=== PATIENT | female | born 1990 | race American Indian/Alaskan Native ===

== ENCOUNTER 2019-11-04 19:23 | Emergency (ER) | payer OTHER ==
[2019-11-04 20:17] VITALS: BP 135/94
[2019-11-04] MEDS ORDERED: ACETAMINOPHEN 325 MG TAB PO ONE (20:47)
--- NOTE | 2019-11-04 21:25 | XRay Report ---
RIGHT KNEE, 3 VIEWS INDICATION / CLINICAL INFORMATION: right knee pain. Fell off stairs COMPARISON: None available. FINDINGS: No fracture, dislocation, or joint effusion noted. IMPRESSION: Negative exam. Signer Name: Yuliet Doyle MD Signed: 11/04/2019 9:21 PM Workstation Name: [id number]
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
== END 2019-11-04 22:00 | disposition home or self-care (01) ==
LOC: ED 19:23
DX: M25.561 Pain in right knee (principal); W10.8XXA Fall (on) (from) other stairs and steps, initial encounter; Y93.89 Activity, other specified; Y92.89 Other specified places as the place of occurrence of the external cause; Y99.8 Other external cause status

== ENCOUNTER 2021-05-25 00:21 | Emergency (ER) | payer OTHER ==
[2021-05-25 01:40] LABS: Blood Urea Nitrogen 6 mg/dL (7-17); Calcium 8.9 mg/dL (8.4-10.2); Hemolysis Index 0
[2021-05-25 01:46] LABS: BUN/Creatinine Ratio 9
[2021-05-25 01:49] LABS: Monocytes # (Auto) 0.4 K/mm3 (0.0-0.8); Monocytes % (Auto) 11.9 % (0.0-7.3)
[2021-05-25 01:52] LABS: Basophils % (Auto) 0.3 % (0.0-1.8); Hematocrit 36.2 % (30.3-42.9); Hemoglobin 11.7 gm/dl (10.1-14.3); Lymphocytes # (Auto) 0.6 K/mm3 (1.2-5.4); Lymphocytes % (Auto) 16.1 % (13.4-35.0); Mean Corpuscular HGB Conc 32 % (30-34); Mean Corpuscular Volume 75 fl (79-97); Platelet Count 269 K/mm3 (140-440); Red Blood Count 4.82 M/mm3 (3.65-5.03)
[2021-05-25 01:53] LABS: Red Cell Distribution Width 20.3 % (13.2-15.2)
[2021-05-25] MEDS ORDERED: ACETAMINOPHEN 500 MG TAB PO ONE (10:35)
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
[2021-05-25 11:03] VITALS: BP 130/94
== END 2021-05-25 11:02 | disposition home or self-care (01) ==
LOC: EEVIPCON 00:21 → ED 00:21
DX: S39.012A Strain of muscle, fascia and tendon of lower back, initial encounter (principal); B34.9 Viral infection, unspecified; T74.11XA Adult physical abuse, confirmed, initial encounter; Z77.098 Contact with and (suspected) exposure to other hazardous, chiefly nonmedicinal, chemicals; Z98.890 Other specified postprocedural states; F17.200 Nicotine dependence, unspecified, uncomplicated; Z88.6 Allergy status to analgesic agent; Z88.8 Allergy status to other drugs, medicaments and biological substances; X58.XXXA Exposure to other specified factors, initial encounter; Y93.89 Activity, other specified; Y92.89 Other specified places as the place of occurrence of the external cause; Y99.8 Other external cause status
CPT/HCPCS: 36415; 80048; 80320; 85025; 99284; G0480

== ENCOUNTER 2022-02-12 04:36 | Emergency (ER) | payer BC, OTHER ==
[2022-02-12] MEDS ORDERED: KETOROLAC 30 MG/1 ML INJ IV ONE (09:43)
[2022-02-12] MEDS ORDERED: SODIUM CHLORIDE 0.9% 1000 ML 1,000 ML IV ONE (09:43)
[2022-02-12] MEDS ORDERED: ONDANSETRON 4 MG/2 ML INJ IV ONE (09:43)
--- NOTE | 2022-02-12 09:48 | Emergency Department Report ---
ED Abdominal Pain HPI - General Chief Complaint: Abdominal Pain Stated Complaint: ABD PAIN PUI?: No Time Seen by Provider: 02/12/22 09:45 Source: patient, EMS Mode of arrival: Stretcher Limitations: No Limitations - History of Present Illness Initial Comments: Patient 31-year-old female with history of renal stones presents with left flank pain radiating suprapubic rated at 5/10 for the past 2 days. Patient states nausea vomiting dysuria frequency and urgency. Patient denies hematuria. Last renal stone was 1 year ago. Symptoms are exacerbated by voiding. Symptoms are relieved by nothing tried. There is no fever or chills. Last menstrual cycle 1 week ago. MD Complaint: flank pain - Related Data Previous Rx's Medication Instructions Recorded Last Taken Type Ketorolac [Toradol] 10 mg PO Q6H PRN #12 tab 02/12/22 Unknown Rx Ondansetron [Zofran Odt] 4 mg PO Q8HR #12 tab.rapdis 02/12/22 Unknown Rx Allergies Allergy/AdvReac Type Severity Reaction Status Date / Time aspirin Allergy Hives Verified 02/12/22 10:35 lisinopril Allergy Angioedema Verified 02/12/22 10:35 NSAIDS (Non-Steroidal Allergy Unknown Verified 02/12/22 10:35 Anti-Inflamma ED Review of Systems ROS: Stated complaint: ABD PAIN Other details as noted in HPI Constitutional: denies: chills, fever Eyes: denies: eye pain, eye discharge, vision change ENT: denies: ear pain, throat pain Respiratory: denies: cough, shortness of breath, wheezing Cardiovascular: denies: chest pain, palpitations Endocrine: no symptoms reported Gastrointestinal: abdominal pain, nausea, vomiting. denies: diarrhea, constipation, melena Genitourinary: urgency, dysuria, frequency. denies: hematuria, discharge Musculoskeletal: back pain (Left flank) Skin: denies: rash, lesions Neurological: denies: headache, weakness, paresthesias Psychiatric: denies: anxiety, depression Hematological/Lymphatic: denies: easy bleeding, easy bruising ED Past Medical Hx - Past Medical History Previous Medical History?: No - Surgical History Past Surgical History?: Yes Additional Surgical History: Tubaligation, hernia - Social History Smoking Status: Current Every Day Smoker Substance Use Type: Alcohol - Medications Home Medications: Home Medications Medication Instructions Recorded Confirmed Last Taken Type Ketorolac [Toradol] 10 mg PO Q6H PRN #12 tab 02/12/22 Unknown Rx Ondansetron [Zofran Odt] 4 mg PO Q8HR #12 tab.rapdis 02/12/22 Unknown Rx ED Physical Exam - General Limitations: No Limitations General appearance: alert, in no apparent distress - Head Head exam: Present: normocephalic, normal inspection - Eye Eye exam: Present: normal appearance, EOMI Pupils: Present: normal accommodation - ENT ENT exam: Present: normal exam - Neck Neck exam: Present: normal inspection, full ROM. Absent: tenderness - Respiratory Respiratory exam: Present: normal lung sounds bilaterally. Absent: respiratory distress, wheezes, chest wall tenderness - Cardiovascular Cardiovascular Exam: Present: regular rate, normal rhythm, normal heart sounds. Absent: systolic murmur, diastolic murmur, rubs, gallop - GI/Abdominal GI/Abdominal exam: Present: soft, tenderness (Left CVA), normal bowel sounds. Absent: distended, guarding, rebound, rigid, bruit, hernia - Rectal Rectal exam: Present: deferred - Extremities Exam Extremities exam: Present: normal inspection, full ROM, normal capillary refill - Back Exam Back exam: Present: normal inspection, full ROM, CVA tenderness (L). Absent: CVA tenderness (R) - Neurological Exam Neurological exam: Present: alert, oriented X3, CN II-XII intact, normal gait - Expanded Neurological Exam Expanded Patient oriented to: Present: person, place, time Speech: Present: fluid speech Best Eye Response (Derek): (4) open spontaneously Best Motor Response (Derek): (6) obeys commands Best Verbal Response (Derek): (5) oriented Derek Total: 15 - Psychiatric Psychiatric exam: Present: normal affect - Skin Skin exam: Present: warm, dry, intact, normal color. Absent: rash ED Course Vital Signs 02/12/22 02/12/22 02/12/22 04:38 10:37 10:46 Temperature 97.9 F 98.4 F 98.5 F Pulse Rate 101 H 76 78 Respiratory 18 20 20 Rate Blood Pressure 121/78 Blood Pressure 126/94 121/78 [Right] O2 Sat by Pulse 99 99 99 Oximetry ED Medical Decision Making - Lab Data Result diagrams: 02/12/22 10:04 02/12/22 10:04 Labs 02/12/22 02/12/22 02/12/22 10:04 10:04 10:35 WBC 6.8 RBC 4.39 Hgb 10.1 Hct 31.9 MCV 73 L MCH 23 L MCHC 32 RDW 19.7 H Plt Count 514 H Lymph % (Auto) 10.9 L Porter % (Auto) 6.0 Eos % (Auto) 0.1 Baso % (Auto) 0.3 Lymph # (Auto) 0.7 L Porter # (Auto) 0.4 Eos # (Auto) 0.0 Baso # (Auto) 0.0 Seg Neutrophils % 82.7 H Seg Neutrophils # 5.7 Sodium 136 L Potassium 3.8 Chloride 101.9 Carbon Dioxide 22 Anion Gap 16 BUN 8 Creatinine 0.6 Estimated GFR > 60 BUN/Creatinine Ratio 13 Glucose 95 Calcium 8.4 Total Bilirubin 0.80 AST 21 ALT 17 Alkaline Phosphatase 62 Total Protein 6.6 Albumin 4.1 Albumin/Globulin Ratio 1.6 Urine Color Straw Urine Turbidity Clear Urine pH 6.0 Ur Specific [place] 1.013 Urine Protein <15 mg/dl Urine Glucose (UA) Neg Urine Ketones Neg Urine Blood Sm Urine Nitrite Neg Urine Bilirubin Neg Urine Urobilinogen < 2.0 Ur Leukocyte Esterase Tr Urine WBC (Auto) 3.0 Urine RBC (Auto) 1.0 U Epithel Cells (Auto) 13.0 Urine Mucus Few Urine HCG, Qual Negative - Radiology Data Radiology results: report reviewed, image reviewed XR abdomen 1V ap INDICATION / CLINICAL INFORMATION: Abd pain. COMPARISON: None available. FINDINGS: TUBES / LINES: None. CHEST: Visualized chest shows no significant abnormality. BOWEL GAS PATTERN: No significant abnormality. FREE AIR / EXTRALUMINAL GAS: None seen. ADDITIONAL FINDINGS: No significant additional findings. IMPRESSION: 1. No significant abnormality. Signer Name: Muna Campos MD Signed: 02/12/2022 11:57 AM Workstation Name: [id number] Transcribed By: LIAM Dictated By: MUNA CAMPOS MD Electronically Authenticated By: MUNA CAMPOS MD Signed Date/Time: 02/12/22 115 DD/ 56 TD/TT: - Medical Decision Making Symptoms improved medications given in ED, KUB is normal, labs are normal, plan DC to home. NSAIDs as needed pain. Continue to hydrate as directed. Follow-up with your doctor in 2 to 3 days. Return to emergency department should symptoms worsen. Patient verbalized agreement understanding with discharge plan. Patient DC'd home in stable condition at this time. Critical care attestation.: If time is entered above; I have spent that time in minutes in the direct care of this critically ill patient, excluding procedure time. ED Disposition Clinical Impression: Flank pain Disposition: 01 HOME / SELF CARE / HOMELESS Is pt being admited?: No Does the pt Need Aspirin: No Condition: Stable Instructions: Abdominal Pain (ED), Flank Pain, Adult, [id number], Pain Without a Known Cause Additional Instructions: Take medications as prescribed, hydrate as directed. Follow-up with your doctor in 2 to 3 days. Return to emergency department should symptoms worsen. Prescriptions: Ketorolac [Toradol] 10 mg PO Q6H PRN #12 tab PRN Reason: Pain Ondansetron [Zofran Odt] 4 mg PO Q8HR #12 tab.kit Referrals: KIMBERLY EMRA MD [Primary Care Provider] - 3-5 Days RENAE DONIS MD [Staff Physician] - 3-5 Days Forms: Work/School Release Form(ED) Time of Disposition: 12:22
[2022-02-12 10:27] LABS: Basophils % (Auto) 0.3 % (0.0-1.8); Eosinophils % (Auto) 0.1 % (0.0-4.3); Hematocrit 31.9 % (30.3-42.9); Hemoglobin 10.1 gm/dl (10.1-14.3); Lymphocytes # (Auto) 0.7 K/mm3 (1.2-5.4); Lymphocytes % (Auto) 10.9 % (13.4-35.0); Mean Corpuscular HGB Conc 32 % (30-34); Mean Corpuscular Volume 73 fl (79-97); Monocytes # (Auto) 0.4 K/mm3 (0.0-0.8); Platelet Count 514 K/mm3 (140-440); Red Blood Count 4.39 M/mm3 (3.65-5.03); Red Cell Distribution Width 19.7 % (13.2-15.2)
[2022-02-12 10:36] LABS: Alanine Aminotransferase 17 units/L (7-56); Albumin 4.1 g/dL (3.9-5); Blood Urea Nitrogen 8 mg/dL (7-17); Calcium 8.4 mg/dL (8.4-10.2); Hemolysis Index 6
[2022-02-12 10:37] LABS: BUN/Creatinine Ratio 13
[2022-02-12 11:30] LABS: Bilirubin,Urine NEG (Negative); Blood,Urine SM (Negative); Color,Urine Straw (Yellow); Mucus,Urine FEW /HPF; Protein,Urine <15 mg/dL mg/dL (Negative); Urobilinogen,Urine < 2.0 mg/dL (<2.0)
[2022-02-12 11:34] LABS: HCG Qualitative,Urine Negative (Negative)
--- NOTE | 2022-02-12 12:02 | XRay Report ---
XR abdomen 1V ap INDICATION / CLINICAL INFORMATION: Abd pain. COMPARISON: None available. FINDINGS: TUBES / LINES: None. CHEST: Visualized chest shows no significant abnormality. BOWEL GAS PATTERN: No significant abnormality. FREE AIR / EXTRALUMINAL GAS: None seen. ADDITIONAL FINDINGS: No significant additional findings. IMPRESSION: 1. No significant abnormality. Signer Name: Keaton Davalos MD Signed: 02/12/2022 11:57 AM Workstation Name: [id number]
[2022-02-12 12:36] VITALS: BP 122/78
== END 2022-02-12 12:35 | disposition home or self-care (01) ==
LOC: ED 04:36
DX: R10.9 Unspecified abdominal pain (principal); F17.200 Nicotine dependence, unspecified, uncomplicated; Z88.6 Allergy status to analgesic agent; Z88.1 Allergy status to other antibiotic agents; Z91.09 Other allergy status, other than to drugs and biological substances
CPT/HCPCS: 36415; 74018; 80053; 81001; 81025; 85025; 96361; 96374; 96375; 99284; J1885; J2405; J7030